=== PATIENT | male | born 1985 | race Caucasian/White ===

== ENCOUNTER 2016-12-23 17:16 | Emergency (ER) | payer BC ==
[~2016-12-23] VITALS: Ht 180.3 cm; Wt 77.1 kg
[2016-12-23 17:25] VITALS: BP 144/83
--- NOTE | 2016-12-23 19:04 | PHYS DOC ---
Past Medical History Past Medical History: Asthma Past Surgical History: No Surgical History Alcohol Use: Occasionally Drug Use: None Adult General Chief Complaint Chief Complaint: OTHER COMPLAINTS [facility] Patient is a 31 year old male] who presents with [dysphagia after swallowing an allergy pill that he thinks may have gotten stuck in his throat. He does feel he is able to swallow secretions.] Review of Systems Review of Systems Constitutional: Denies fever or chills [] Eyes: Denies change in visual acuity, redness, or eye pain [] HENT: Denies nasal congestion or sore throat [] Respiratory: Denies cough or shortness of breath [] Cardiovascular: No additional information not addressed in HPI [] GI: Denies abdominal pain, nausea, vomiting, bloody stools or diarrhea [] : Denies dysuria or hematuria [] Musculoskeletal: Denies back pain or joint pain [] Integument: Denies rash or skin lesions [] Neurologic: Denies headache, focal weakness or sensory changes [] Endocrine: Denies polyuria or polydipsia [] Current Medications Current Medications Current Medications Medications (Trade) Dose Ordered Sig/Noemi Start Time Stop Time Status Last Admin Dose Admin Iohexol (Omnipaque 240 Mg/ml) 50 ml 1X ONCE 12/23/16 19:15 12/23/16 19:16 DC 12/23/16 19:28 30 ML Allergies Allergies Allergies Coded Allergies Type Severity Reaction Last Updated Verified No Known Drug Allergies 12/23/16 No Physical Exam Physical Exam Constitutional: Well developed, well nourished, no acute distress, non-toxic appearance. [] HENT: Normocephalic, atraumatic, bilateral external ears normal, oropharynx moist, no oral exudates, nose normal. [] Eyes: PERRLA, EOMI, conjunctiva normal, no discharge. [] Neck: Normal range of motion, no tenderness, supple, no stridor. [] Cardiovascular:Heart rate regular rhythm, no murmur [] Lungs & Thorax: Bilateral breath sounds clear to auscultation [] Abdomen: Bowel sounds normal, soft, no tenderness, no masses, no pulsatile masses. [] Skin: Warm, dry, no erythema, no rash. [] Back: No tenderness, no CVA tenderness. [] Extremities: No tenderness, no cyanosis, no clubbing, ROM intact, no edema. [] Neurologic: Alert and oriented X 3, normal motor function, normal sensory function, no focal deficits noted. [] Psychologic: Affect normal, judgement normal, mood normal. [] Current Patient Data Vital Signs Vital Signs Date Time Temp Pulse Resp B/P (MAP) Pulse Ox O2 Delivery O2 Flow Rate FiO2 12/23/16 17:25 97.6 70 20 144/83 (103) 99 Room Air 97.6 EKG EKG [] Radiology/Procedures Radiology/Procedures Gastrografin swallowing study reveals no obstruction. My interpretation. My review the images. [] Course & Med Decision Making Course & Med Decision Making Pertinent Labs and Imaging studies reviewed. (See chart for details) Patient was able to swallow the contrast. I will provide him with gastroenterology referral for follow-up as he needs an EGD electively. [] Dragon Disclaimer Dragon Disclaimer This electronic medical record was generated, in whole or in part, using a voice recognition dictation system. Departure Departure Impression: Primary Impression: Dysphagia Disposition: HOME, SELF-CARE Condition: IMPROVED Referrals: NO PCP (PCP) ANKIT LINK MD Patient Instructions: Dysphagia KINZA JOYA MD Dec 23, 2016 19:04
[2016-12-23] MEDS ORDERED: IOHEXOL 240 MG/ML 50ML VIAL. PO ONE (19:15)
--- NOTE | 2016-12-24 07:34 | RAD ---
Neck x-rays with water-soluble oral contrast Indication: Dysphagia, pills stuck in throat. Technique: 3 views of the neck with ingestion of 30 mL of Omnipaque 240 Comparison: None Findings: Oral contrast is seen opacifying the cervical esophagus. Mild narrowing is seen of the esophagus in the upper thoracic region best seen on AP view measuring approximately 7 cm in length. No large osteophytes. The prevertebral soft tissues are within normal limits. No aspiration. The cervical spine is in normal anatomic alignment without evidence of degenerative disc disease or facet arthropathy. Impression: Approximately 7 cm long segment narrowing of the esophagus noted in the upper thoracic region. This is nonspecific and may represent peristalsis. However, underlying soft tissue abnormality not ruled out. Direct visualization with EGD is recommended.
== END 2016-12-23 19:40 | disposition home or self-care (01) ==
LOC: ER 17:16
DX: R13.10 Dysphagia, unspecified (principal); J45.909 Unspecified asthma, uncomplicated
CPT/HCPCS: 70360; 99284; Q9966

== ENCOUNTER → 2019-12-04 | Outpatient (CLI) | payer BC ==
--- NOTE | 2019-12-04 16:05 | RAD ---
DUPLEX SONOGRAPHY OF THE TESTICLES AND SCROTUM INDICATIONS: Right testicular/inguinal pain. FINDINGS: Duplex sonography of the scrotum and both testicles was performed including grayscale evaluation and color flow and waveform spectral analysis. The longitudinal and AP and transverse dimensions of the right testicle are 5.0 cm and 2.3 centers and 3.1 cm respectively. The longitudinal AP and transverse dimensions of the left testicle are 4.7 cm and 2.0 cm and 2.9 cm respectively. Both testicles are homogeneous without mass and demonstrates symmetric color Doppler flow. Epididymis on both sides appears normal. Small hydroceles are seen bilaterally. Sonography of the right groin was performed with Valsalva maneuvers and no obvious hernia is seen. IMPRESSION: Small bilateral hydroceles. Otherwise unremarkable testicular sonogram. Electronically signed by: Adalberto Byrne MD (12/04/2019 4:02 PM) [id number]
== END | disposition home or self-care (01) ==
LOC: US 08:58
PROVIDERS: ATTEND Nurse Practitioner Family
DX: N43.2 Other hydrocele (principal)
CPT/HCPCS: 76870